=== PATIENT | male | born 1980 | race Caucasian/White ===

== ENCOUNTER 2021-02-01 14:28 | Inpatient (IN) | payer MEDICAID, OTHER ==
[~2021-02-01] VITALS: Ht 180.3 cm; Wt 81.6 kg
[~2021-02-01 14:28] MED LIST: NO HOME MEDICATIONS
[2021-02-01] MEDS ORDERED: SODIUM CHLORIDE 0.9% 1,000 ML IV ONE (15:15)
[2021-02-01] MEDS ORDERED: LORAZEPAM 2MG/ML CPJ IV ONE (15:15)
[2021-02-01 15:30] LABS: MEAN CORPUSCULAR HEMOGLOBIN 18.6 pg (28.0-32.0); MEAN CORPUSCULAR VOLUME 63.8 fL (80.0-94.0); PLATELET 82 x1000/uL (130-400); RED BLOOD CELL COUNT 3.57 mill/uL (4.7-6.1); RED CELL DISTRIBUTION WIDTH 24.2 % (11.6-14.6)
[2021-02-01 15:37] LABS: CHLORIDE 101 mEq/L (98-107)
[2021-02-01 15:41] LABS: ETHANOL BLOOD < 10 mg/dL
[2021-02-01 15:52] LABS: HEMATOCRIT. 22.8 % (42.0-52.0); HEMOGLOBIN. 6.7 g/dL (14.0-18.0)
[2021-02-01 17:02] LABS: PLATELET ESTIMATE DECREASED
[2021-02-01] MEDS ORDERED: PANTOPRAZOLE SODIUM 40 MG/VIAL IV ONE (17:15)
[2021-02-01 17:22] LABS: *AMPHETAMINES SCREEN URINE NEGATIVE (NEGATIVE); *BARBITURATES SCREEN URINE NEGATIVE (NEGATIVE); *BENZODIAZEPINES SCREEN URINE NEGATIVE (NEGATIVE); *COCAINE SCREEN URINE NEGATIVE (NEGATIVE)
[2021-02-01 17:23] LABS: CANNABINOID URINE SCREEN NEGATIVE (NEGATIVE); METHADONE URINE SCREEN NEGATIVE (NEGATIVE); OPIATES URINE SCREEN NEGATIVE (NEGATIVE); PHENCYCLIDINE URINE SCREEN NEGATIVE (NEGATIVE)
[2021-02-01] MEDS ORDERED: ONDANSETRON HCL 4MG/2ML INJ IV PRN (22:00)
[2021-02-01] MEDS ORDERED: ACETAMINOPHEN 325MG TABLET PO PRN (22:00)
[2021-02-01] MEDS ORDERED: DIPHENHYDRAMINE 50MG/ML VIAL IV PRN (22:00)
[2021-02-01] MEDS: SODIUM CHLORIDE 0.9% 1,000 ML IV SCH (22:30)
[2021-02-01] MEDS: ACETAMINOPHEN 325MG TABLET PO PRN (22:44)
[2021-02-01] MEDS ORDERED: MVI, ADULT NO.1 10 ML, FOLIC ACID 1 MG, THIAMINE HCL 100 MG in SODIUM CHLORIDE 0.9% 1,0... IV SCH ×4 (23:00)
[2021-02-01] MEDS ORDERED: FOLIC ACID 1 MG, THIAMINE HCL 100 MG in SODIUM CHLORIDE 0.9% 1,000 ML IV SCH (23:00)
[2021-02-01] MEDS ORDERED: MULTIVITAMINS,THER W-MINERALS TABLET PO SCH (23:00)
[2021-02-02 00:01] VITALS: BP 132/84
[2021-02-02 00:55] LABS: TOTAL IRON BINDING CAPACITY 574 ug/dL (250-450)
[2021-02-02 01:25] LABS: FOLIC ACID (FOLATE) SERUM 17.9 ng/mL (>5.38)
[2021-02-02 07:04] LABS: HEMATOCRIT. 25.1 % (42.0-52.0); HEMOGLOBIN. 7.7 g/dL (14.0-18.0); MEAN CORPUSCULAR HEMOGLOBIN 20.5 pg (28.0-32.0); MEAN CORPUSCULAR VOLUME 67.2 fL (80.0-94.0); MEAN PLATELET VOLUME 8.2 fl (7.4-10.4); RED BLOOD CELL COUNT 3.74 mill/uL (4.7-6.1); RED CELL DISTRIBUTION WIDTH 26.8 % (11.6-14.6)
[2021-02-02 07:32] LABS: CHLORIDE 104 mEq/L (98-107)
[2021-02-02 07:34] LABS: PLATELET 43 x1000/uL (130-400)
[2021-02-02 08:00] VITALS: BP 148/86
[2021-02-02] MEDS ORDERED: PNEUMOCOCCAL 23-VAL P-SAC VAC 0.5 ML IM ONE (08:00)
[2021-02-02] MEDS: LORAZEPAM 2MG/ML CPJ IV PRN ×2 (08:54→15:50)
[2021-02-02] MEDS: ACETAMINOPHEN 325MG TABLET PO PRN (08:55)
[2021-02-02] MEDS ORDERED: PANTOPRAZOLE SODIUM 40 MG/VIAL IV SCH ×2 (09:00→21:00)
[2021-02-02] MEDS ORDERED: INFLUENZA VACCINE 05/PF 0.5 ML VIAL IM ONE (10:00)
[2021-02-02] MEDS ORDERED: CYANOCOBALAMIN 1000MCG/ML VIAL IM SCH (10:00)
[2021-02-02] MEDS ORDERED: MAGNESIUM 4 G PREMIX 100 ML IV SCH (11:00)
[2021-02-02] MEDS: SODIUM CHLORIDE 0.9% 1,000 ML IV SCH ×2 (11:12→17:20)
[2021-02-02 12:00] VITALS: BP 130/81
[2021-02-02 13:40] LABS: NUCLEATED RED BLOOD CELLS 1 /100 WBC
[2021-02-02 13:41] LABS: PLATELET ESTIMATE MARKEDLY DECREASED
[2021-02-02] MEDS ORDERED: ONDANSETRON HCL 4MG/2ML INJ IV PRN (15:45)
[2021-02-02 16:00] VITALS: BP 150/93
[2021-02-02] MEDS: DIATR MEGLU/DIATRIZOATE SOLN 30ML PO SCH ×2 (16:34→17:30)
[2021-02-02] MEDS ORDERED: SUCRALFATE 1 G/10 ML UDC PO SCH (17:10)
[2021-02-02] MEDS ORDERED: CHLORDIAZEPOXIDE 25MG CAPSULE PO SCH (17:37)
[2021-02-02 19:46] LABS: INR 1.1; PROTHROMBIN TIME 11.9 sec (9.6-11.0)
[2021-02-02 19:57] LABS: AMYLASE 76 IU/L (25-115)
[2021-02-02] MEDS ORDERED: IRON SUCROSE COMPLEX 100 MG/5 ML ML IV SCH (20:00)
[2021-02-02] MEDS ORDERED: POTASSIUM PHOS,M-BASIC-D-BASIC 20 MMOL in DEXT 5% WATER 243.3333 ML IV NR (20:00)
== END 2021-02-02 19:10 | disposition left against medical advice (07) | DRG 253 ==
LOC: ER 14:28 → 8WST 17:02 → ENRESERV 21:30 → 8WST 02-02 00:03
PROVIDERS: ADMIT Internal Medicine; ATTEND Internal Medicine
PROC: 30233N1 Transfusion of Nonautologous Red Blood Cells into Peripheral Vein, Percutaneous Approach (ICD-10-PCS; principal; 2021-02-01)
DX: K62.5 Hemorrhage of anus and rectum (principal); D50.9 Iron deficiency anemia, unspecified; D69.6 Thrombocytopenia, unspecified; E83.39 Other disorders of phosphorus metabolism; E83.42 Hypomagnesemia; E83.51 Hypocalcemia; E43 Unspecified severe protein-calorie malnutrition; R07.89 Other chest pain; E87.6 Hypokalemia; F10.239 Alcohol dependence with withdrawal, unspecified; F41.0 Panic disorder [episodic paroxysmal anxiety]; Z83.3 Family history of diabetes mellitus; Z88.0 Allergy status to penicillin; Z79.899 Other long term (current) drug therapy; Z87.81 Personal history of (healed) traumatic fracture; Z68.25 Body mass index [BMI] 25.0-25.9, adult
CPT/HCPCS: 36415; 71045; 80053; 80305; 80320; 82150; 82607; 82746; 83036; 83540; 83550; 83735; 84100; 84484; 85025; 86850; 86900; 86920; 99291; C9113; J1200; J2060; J3411; J3420; J3475; J3490; J7030; J7040; J7060; P9016; Q9963; G0480

== ENCOUNTER 2021-02-04 16:01 | Inpatient (IN) | payer MEDICAID ==
[~2021-02-04] VITALS: Ht 180.3 cm; Wt 84.5 kg
[2021-02-04] MEDS ORDERED: SODIUM CHLORIDE 0.9% 1,000 ML IV ONE (16:30)
[2021-02-04 17:13] LABS: BASOPHILS % 1.1 % (0.0-2.0); EOSINOPHILS % 1.9 % (0.0-5.0); HEMATOCRIT. 27.9 % (42.0-52.0); HEMOGLOBIN. 8.3 g/dL (14.0-18.0); LYMPHOCYTES % 8.5 % (20.0-50.0); MEAN CORPUSCULAR HEMOGLOBIN 20.4 pg (28.0-32.0); MEAN CORPUSCULAR VOLUME 68.2 fL (80.0-94.0); MEAN PLATELET VOLUME 8.6 fl (7.4-10.4); MONOCYTES % 15.5 % (2.0-8.0); PLATELET 68 x1000/uL (130-400); RED BLOOD CELL COUNT 4.08 mill/uL (4.7-6.1); RED CELL DISTRIBUTION WIDTH 26.4 % (11.6-14.6)
[2021-02-04 17:16] LABS: CHLORIDE 105 mEq/L (98-107)
[2021-02-04 17:17] LABS: INR 1.1; PROTHROMBIN TIME 11.6 sec (9.6-11.0)
[2021-02-04 17:27] LABS: PLATELET ESTIMATE DECREASED
[2021-02-04 23:30] VITALS: BP 169/96
[2021-02-04] MEDS ORDERED: ACETAMINOPHEN 325MG TABLET PO PRN ×2 (23:30)
[2021-02-04] MEDS ORDERED: ZOLPIDEM TARTRATE 5MG TABLET PO PRN (23:30)
[2021-02-04] MEDS ORDERED: MAGNESIUM/ALUMINUM HYDROXIDE/SIMETHICONE 30ML UDC PO PRN (23:30)
[2021-02-04] MEDS ORDERED: CLONIDINE 0.1MG TABLET PO PRN (23:30)
[2021-02-04] MEDS ORDERED: ONDANSETRON HCL 4MG/2ML INJ IV PRN (23:30)
[2021-02-04] MEDS ORDERED: DIPHENHYDRAMINE 50MG/ML VIAL IV PRN (23:30)
[2021-02-05] VITALS: BP 169/96
[2021-02-05] MEDS ORDERED: FOLIC ACID 1 MG, THIAMINE HCL 100 MG in SODIUM CHLORIDE 0.9% 1,000 ML IV SCH (01:00)
[2021-02-05] MEDS ORDERED: MULTIVITAMINS,THER W-MINERALS TABLET PO NR (01:00)
[2021-02-05 04:00] VITALS: BP 130/78
[2021-02-05] MEDS: CHLORDIAZEPOXIDE 25MG CAPSULE PO SCH ×3 (05:41→22:39)
[2021-02-05] MEDS: SODIUM CHLORIDE 0.9% INJ 3ML FLUSH IVF SCH ×3 (05:41→21:04)
[2021-02-05 06:41] LABS: HEMATOCRIT 24.4 % (42.0-52.0); HEMOGLOBIN 7.5 g/dL (14.0-18.0); MEAN CORPUSCULAR HEMOGLOBIN 21.6 pg (28.0-32.0); MEAN CORPUSCULAR VOLUME 70.2 fL (80.0-94.0); PLATELET 62 x1000/uL (130-400); RED BLOOD CELL COUNT 3.47 mill/uL (4.7-6.1); RED CELL DISTRIBUTION WIDTH 26.4 % (11.6-14.6)
[2021-02-05] MEDS ORDERED: OMEPRAZOLE 20MG CAPSULE EXTENDED RELEASE PO SCH (07:10)
[2021-02-05 08:00] VITALS: BP 149/93
[2021-02-05] MEDS: FERROUS SULFATE 325MG TABLET PO SCH ×3 (09:12→17:28)
[2021-02-05 12:00] VITALS: BP 148/89
[2021-02-05 14:23] LABS: TOTAL IRON BINDING CAPACITY 384 ug/dL (250-450)
[2021-02-05 14:40] LABS: FERRITIN 11 ng/mL (22-322)
[2021-02-05 14:51] LABS: HEPATITIS B SURFACE ANTIGEN NEGATIVE
[2021-02-05 15:21] LABS: HEPATITIS A AB IGM NEGATIVE (NEGATIVE)
[2021-02-05 16:00] VITALS: BP 151/88
[2021-02-05 18:11] LABS: HEMATOCRIT 25.1 % (42.0-52.0); HEMOGLOBIN 7.5 g/dL (14.0-18.0); MEAN CORPUSCULAR HEMOGLOBIN 20.6 pg (28.0-32.0); MEAN CORPUSCULAR VOLUME 68.8 fL (80.0-94.0); PLATELET 77 x1000/uL (130-400); RED BLOOD CELL COUNT 3.65 mill/uL (4.7-6.1); RED CELL DISTRIBUTION WIDTH 26.7 % (11.6-14.6)
[2021-02-05 18:20] LABS: INR 1.1; PARTIAL THROMBOPLASTIN TIME 25.1 sec (23.4-31.0); PROTHROMBIN TIME 11.7 sec (9.6-11.0)
[2021-02-05 20:00] VITALS: BP 136/67
[2021-02-05] MEDS ORDERED: IRON SUCROSE COMPLEX 100 MG/5 ML ML IV SCH (20:00)
[2021-02-05 20:42] LABS: VITAMIN B12 SERUM 800 pg/mL (211-911)
[2021-02-05 20:49] LABS: FOLIC ACID (FOLATE) SERUM > 20.00 ng/mL (>5.38)
[2021-02-05] MEDS: PANTOPRAZOLE SODIUM 40 MG/VIAL IV SCH (21:04)
[2021-02-06] VITALS: BP 130/74
[2021-02-06 04:00] VITALS: BP 157/94
[2021-02-06] MEDS: SODIUM CHLORIDE 0.9% INJ 3ML FLUSH IVF SCH ×2 (05:47→12:48)
[2021-02-06] MEDS: CHLORDIAZEPOXIDE 25MG CAPSULE PO SCH ×2 (05:47→15:47)
[2021-02-06 06:47] LABS: BASOPHILS % 1.1 % (0.0-2.0); EOSINOPHILS % 4.1 % (0.0-5.0); HEMATOCRIT. 27.7 % (42.0-52.0); HEMOGLOBIN. 8.1 g/dL (14.0-18.0); LYMPHOCYTES % 24.9 % (20.0-50.0); MEAN CORPUSCULAR HEMOGLOBIN 20.4 pg (28.0-32.0); MEAN PLATELET VOLUME 8.4 fl (7.4-10.4); MONOCYTES % 12.5 % (2.0-8.0); NEUTROPHILS % 57.4 % (40.0-76.0); PLATELET 83 x1000/uL (130-400); RED BLOOD CELL COUNT 3.96 mill/uL (4.7-6.1); RED CELL DISTRIBUTION WIDTH 27.1 % (11.6-14.6)
[2021-02-06 07:20] LABS: CHLORIDE 108 mEq/L (98-107)
[2021-02-06] MEDS: FERROUS SULFATE 325MG TABLET PO SCH ×3 (09:44→15:52)
[2021-02-06] MEDS: PANTOPRAZOLE SODIUM 40 MG/VIAL IV SCH (09:44)
[2021-02-06] MEDS ORDERED: KETAMINE HCL 50 MG/ML 10ML ONE (13:17)
[2021-02-06 15:33] VITALS: BP 124/67
[2021-02-06] MEDS ORDERED: POTASSIUM CHLORIDE 20MEQ TABLET SR PO NR (17:00)
[2021-02-10 10:07] LABS: SACCHAROMYCES CEREVISIAE IGG <20.0 Units (0.0-24.9)
[2021-02-10 15:10] LABS: ATYPICAL pANCA <1:20 titer (Neg:<1:20)
[2021-02-11 10:09] LABS: SACCHAROMYCES CEREVISIAE IGM 20.6 Units (0.0-24.9)
== END 2021-02-06 18:14 | disposition home or self-care (01) | DRG 254 ==
LOC: ER 16:01 → 8WST 21:28 → EDBEDREQ 21:55 → ENRESERV 22:18
PROVIDERS: ADMIT Internal Medicine; ATTEND Internal Medicine
PROC: 0DJ08ZZ Inspection of Upper Intestinal Tract, Via Natural or Artificial Opening Endoscopic (ICD-10-PCS; principal; 2021-02-06)
DX: K92.1 Melena (principal); D50.0 Iron deficiency anemia secondary to blood loss (chronic); R07.89 Other chest pain; E43 Unspecified severe protein-calorie malnutrition; J43.9 Emphysema, unspecified; F10.239 Alcohol dependence with withdrawal, unspecified; K70.9 Alcoholic liver disease, unspecified; R16.1 Splenomegaly, not elsewhere classified; F41.0 Panic disorder [episodic paroxysmal anxiety]; D69.6 Thrombocytopenia, unspecified; Z68.26 Body mass index [BMI] 26.0-26.9, adult; Z20.822 Contact with and (suspected) exposure to COVID-19; K70.30 Alcoholic cirrhosis of liver without ascites
CPT/HCPCS: 36415; 71045; 76700; 80053; 82140; 82270; 82607; 82728; 82746; 83540; 83550; 83880; 84484; 85025; 85027; 86256; 86671; 86705; 86709; 86803; 86850; 86900; 87340; 87426; 88305; 88313; 93005; 93306; 99285; C9113; J3411; J3490; J7030

== ENCOUNTER 2021-04-10 20:00 | Inpatient (IN) | payer MEDICAID ==
[~2021-04-10] VITALS: Ht 180.3 cm; Wt 81.6 kg
[2021-04-10] MEDS ORDERED: SODIUM CHLORIDE 0.9% 1,000 ML IV ONE (21:00)
[2021-04-10 22:32] LABS: BASOPHILS % 1.6 % (0.0-2.0); EOSINOPHILS % 0.9 % (0.0-5.0); HEMATOCRIT. 39.6 % (42.0-52.0); HEMOGLOBIN. 13.7 g/dL (14.0-18.0); LYMPHOCYTES % 38.9 % (20.0-50.0); MEAN CORPUSCULAR HEMOGLOBIN 28.6 pg (28.0-32.0); MEAN CORPUSCULAR VOLUME 82.6 fL (80.0-94.0); MEAN PLATELET VOLUME 6.3 fl (7.4-10.4); MONOCYTES % 6.9 % (2.0-8.0); NEUTROPHILS % 51.7 % (40.0-76.0); PLATELET 158 x1000/uL (130-400)
[2021-04-10 22:35] LABS: CLARITY URINE CLEAR (CLEAR); COLOR URINE YELLOW (YELLOW); KETONES URINE NEGATIVE (NEGATIVE); LEUKOCYTE ESTERASE URINE NEGATIVE (NEGATIVE); NITRITE URINE NEGATIVE (NEGATIVE); OCCULT BLOOD URINE NEGATIVE (NEGATIVE); PH URINE 5.5 (4.5-8.0); PROTEIN URINE 1+ (NEGATIVE); SPECIFIC GRAVITY URINE 1.013 (1.005-1.030); UROBILINOGEN URINE 0.2 E.U./dL (0.2-1.0)
[2021-04-10 22:43] LABS: CHLORIDE 109 mEq/L (98-107)
[2021-04-10 23:03] LABS: PLATELET ESTIMATE NORMAL
[2021-04-11 00:21] LABS: ETHANOL BLOOD 471 mg/dL
[2021-04-11] MEDS ORDERED: ONDANSETRON HCL 4MG/2ML INJ IV PRN (02:00)
[2021-04-11] MEDS ORDERED: DIPHENHYDRAMINE 50MG/ML VIAL IV PRN (02:00)
[2021-04-11] MEDS ORDERED: CLONIDINE 0.1MG TABLET PO PRN (02:00)
[2021-04-11] MEDS ORDERED: MAGNESIUM/ALUMINUM HYDROXIDE/SIMETHICONE 30ML UDC PO PRN (02:00)
[2021-04-11] MEDS ORDERED: LORAZEPAM 2MG/ML CPJ IV PRN (02:00)
[2021-04-11] MEDS ORDERED: ACETAMINOPHEN 325MG TABLET PO PRN ×2 (02:00)
[2021-04-11 02:05] VITALS: BP 119/78
[2021-04-11] MEDS: ZOLPIDEM TARTRATE 5MG TABLET PO PRN (03:09)
[2021-04-11 04:00] VITALS: BP 115/77
[2021-04-11] MEDS ORDERED: MVI, ADULT NO.1 10 ML, FOLIC ACID 1 MG, THIAMINE HCL 100 MG in SODIUM CHLORIDE 0.9% 1,0... IV NR (04:00)
[2021-04-11 06:56] LABS: HEMATOCRIT 35.5 % (42.0-52.0); MEAN CORPUSCULAR HEMOGLOBIN 28.4 pg (28.0-32.0); MEAN CORPUSCULAR VOLUME 83.9 fL (80.0-94.0); PLATELET 101 x1000/uL (130-400); RED BLOOD CELL COUNT 4.23 mill/uL (4.7-6.1); RED CELL DISTRIBUTION WIDTH 24.1 % (11.6-14.6)
[2021-04-11] MEDS ORDERED: FERR-71 PO (07:34)
[2021-04-11 08:00] VITALS: BP 141/96
[2021-04-11] MEDS ORDERED: PNEUMOCOCCAL 23-VAL P-SAC VAC 0.5 ML IM ONE (08:00)
[2021-04-11] MEDS: FAMOTIDINE 20MG/2ML VIAL IV SCH ×2 (09:20→20:58)
[2021-04-11 12:00] VITALS: BP 142/88
[2021-04-11 16:00] VITALS: BP 141/88
[2021-04-11] MEDS: SODIUM CHLORIDE 0.9% 1,000 ML IV SCH ×2 (16:56→22:00)
[2021-04-11] MEDS: FERROUS SULFATE 325MG TABLET PO SCH (16:56)
[2021-04-11 20:00] VITALS: BP 139/69
[2021-04-12] VITALS: BP 134/88
[2021-04-12] MEDS: ZOLPIDEM TARTRATE 5MG TABLET PO PRN (01:38)
[2021-04-12 04:00] VITALS: BP 130/79
[2021-04-12 08:00] VITALS: BP 134/74
[2021-04-12] MEDS: SODIUM CHLORIDE 0.9% 1,000 ML IV SCH (08:32)
[2021-04-12] MEDS: FAMOTIDINE 20MG/2ML VIAL IV SCH (08:32)
[2021-04-12] MEDS: FERROUS SULFATE 325MG TABLET PO SCH ×2 (08:32→12:47)
[2021-04-12 12:00] VITALS: BP 152/84
[2021-04-12 14:55] VITALS: BP_SYST 138; BP_SYST 182; BP_DIAS 84; BP_DIAS 86
[2021-04-12 15:03] VITALS: BP 138/86
== END 2021-04-12 15:45 | disposition home or self-care (01) | DRG 48 ==
LOC: ER 20:00 → 6WST 23:40 → EDBEDREQ 23:43 → EDBEDREQTM 23:43 → ENRESERV 04-11 00:11 → 6WST 04-11 03:11
PROVIDERS: ADMIT Internal Medicine; ATTEND Internal Medicine
DX: G90.8 Other disorders of autonomic nervous system (principal); E87.8 Other disorders of electrolyte and fluid balance, not elsewhere classified; R06.00 Dyspnea, unspecified; J44.9 Chronic obstructive pulmonary disease, unspecified; D50.9 Iron deficiency anemia, unspecified; F10.139 Alcohol abuse with withdrawal, unspecified; F41.9 Anxiety disorder, unspecified; Y90.9 Presence of alcohol in blood, level not specified; Z88.0 Allergy status to penicillin; R06.4 Hyperventilation
CPT/HCPCS: 36415; 71045; 80053; 80320; 81003; 82270; 85025; 85027; 86850; 86900; 90732; 93005; 99291; J2060; J3411; J3490; J7030; G0480

== ENCOUNTER 2021-07-19 14:40 | Inpatient (IN) | payer MEDICAID ==
[~2021-07-19] VITALS: Ht 180.3 cm; Wt 82.0 kg
[~2021-07-19 14:40] MED LIST changes: +FERR-71 PO; -NO HOME MEDICATIONS
[2021-07-19] MEDS ORDERED: LORAZEPAM 2MG/ML CPJ IV ONE (16:30)
[2021-07-19 17:56] LABS: INR 1.1; PROTHROMBIN TIME 11.8 sec (9.6-11.0)
[2021-07-19 17:59] LABS: CHLORIDE 103 mEq/L (98-107)
[2021-07-19 18:05] LABS: ETHANOL BLOOD < 10 mg/dL
[2021-07-19 19:35] LABS: BASOPHILS % 0.2 % (0.0-2.0); EOSINOPHILS % 0.1 % (0.0-5.0); HEMATOCRIT. 38.5 % (42.0-52.0); HEMOGLOBIN. 13.4 g/dL (14.0-18.0); LYMPHOCYTES % 18.3 % (20.0-50.0); MEAN CORPUSCULAR HEMOGLOBIN 32.4 pg (28.0-32.0); MEAN CORPUSCULAR VOLUME 92.8 fL (80.0-94.0); MEAN PLATELET VOLUME 7.9 fl (7.4-10.4); MONOCYTES % 12.9 % (2.0-8.0); NEUTROPHILS % 68.5 % (40.0-76.0); RED BLOOD CELL COUNT 4.15 mill/uL (4.7-6.1); RED CELL DISTRIBUTION WIDTH 18.2 % (11.6-14.6)
[2021-07-19 21:39] LABS: CLARITY URINE CLEAR (CLEAR); COLOR URINE ORANGE (YELLOW); KETONES URINE TRACE (NEGATIVE); LEUKOCYTE ESTERASE URINE 1+ (NEGATIVE); NITRITE URINE POSITIVE (NEGATIVE); OCCULT BLOOD URINE 1+ (NEGATIVE); PH URINE 5.5 (4.5-8.0); PROTEIN URINE 2+ (NEGATIVE); SPECIFIC GRAVITY URINE 1.028 (1.005-1.030)
[2021-07-19] MEDS ORDERED: MORPHINE SULFATE 4 MG/ML CPJ (NOT FOR IM USE) IV ONE (21:45)
[2021-07-19 21:54] LABS: *AMPHETAMINES SCREEN URINE NEGATIVE (NEGATIVE); *BARBITURATES SCREEN URINE NEGATIVE (NEGATIVE); *BENZODIAZEPINES SCREEN URINE NEGATIVE (NEGATIVE); *COCAINE SCREEN URINE NEGATIVE (NEGATIVE)
[2021-07-19 21:56] LABS: CANNABINOID URINE SCREEN NEGATIVE (NEGATIVE); METHADONE URINE SCREEN NEGATIVE (NEGATIVE); OPIATES URINE SCREEN NEGATIVE (NEGATIVE); PHENCYCLIDINE URINE SCREEN NEGATIVE (NEGATIVE)
[2021-07-19] MEDS ORDERED: IOHEXOL-300 100 ML BOTTLE ONE (22:45)
[2021-07-19] MEDS ORDERED: CEFTRIAXONE 2 G PREMIX 50 ML IV ONE (22:45)
[2021-07-20] MEDS ORDERED: ONDANSETRON HCL 4MG/2ML INJ IV PRN
[2021-07-20] MEDS ORDERED: NA PHOS,M-B/NA PHOS,DI-BA ENEMA 118ML PR PRN
[2021-07-20] MEDS ORDERED: CLONIDINE 0.1MG TABLET PO PRN
[2021-07-20] MEDS ORDERED: MAGNESIUM/ALUMINUM HYDROXIDE/SIMETHICONE 30ML UDC PO PRN
[2021-07-20] MEDS ORDERED: ACETAMINOPHEN 325MG TABLET PO PRN ×2
[2021-07-20 04:38] LABS: CHLORIDE 101 mEq/L (98-107)
[2021-07-20 04:47] LABS: HDL CHOLESTEROL 94 mg/dL (40-59); LDL CHOLESTEROL 160 mg/dL (5-100)
[2021-07-20 04:55] LABS: BASOPHILS % 0.4 % (0.0-2.0); EOSINOPHILS % 1.2 % (0.0-5.0); HEMATOCRIT. 37.8 % (42.0-52.0); HEMOGLOBIN. 12.7 g/dL (14.0-18.0); LYMPHOCYTES % 19.9 % (20.0-50.0); MEAN CORPUSCULAR HEMOGLOBIN 32.1 pg (28.0-32.0); MEAN PLATELET VOLUME 7.6 fl (7.4-10.4); MONOCYTES % 12.2 % (2.0-8.0); NEUTROPHILS % 66.3 % (40.0-76.0); RED BLOOD CELL COUNT 3.97 mill/uL (4.7-6.1); RED CELL DISTRIBUTION WIDTH 18.2 % (11.6-14.6)
[2021-07-20 05:05] LABS: PLATELET 27 x1000/uL (130-400)
[2021-07-20] MEDS: CHLORDIAZEPOXIDE 5 MG CAPSULE PO SCH ×3 (06:35→21:20)
[2021-07-20] MEDS ORDERED: POTASSIUM CHLORIDE 20MEQ TABLET SR PO NR (08:15)
[2021-07-20] MEDS ORDERED: THIAMINE HCL 100MG TABLET PO SCH (09:00)
[2021-07-20] MEDS ORDERED: FOLIC ACID 1MG TABLET PO SCH (09:00)
[2021-07-21 01:07] VITALS: BP 166/99
[2021-07-21 14:06] LABS: PLATELET 28 x1000/uL (130-400)
[2021-07-21] MEDS ORDERED: CIPR-263 MT (15:51)
== END 2021-07-21 04:12 | disposition left against medical advice (07) | DRG 384 ==
LOC: ER 14:51 → MICUSO 20:09 → 6WST 07-20 20:35 → MICUSO 07-20 23:20 → 6EST 07-21 00:15
PROVIDERS: ADMIT Family Medicine; ATTEND Family Medicine
DX: S30.1XXA Contusion of abdominal wall, initial encounter (principal); D69.6 Thrombocytopenia, unspecified; D64.9 Anemia, unspecified; E78.5 Hyperlipidemia, unspecified; F10.10 Alcohol abuse, uncomplicated; W18.39XA Other fall on same level, initial encounter; E87.6 Hypokalemia; J44.9 Chronic obstructive pulmonary disease, unspecified; Z88.0 Allergy status to penicillin; Z79.899 Other long term (current) drug therapy; Y93.89 Activity, other specified; Y92.89 Other specified places as the place of occurrence of the external cause; Y99.8 Other external cause status
CPT/HCPCS: 36415; 71045; 74177; 80053; 80061; 80305; 80320; 81003; 83605; 84484; 85025; 85049; 86850; 86900; 93005; 99285; J0696; J2060; J2270; Q9967; G0480

== ENCOUNTER 2021-07-21 12:10 | Emergency (ER) | payer MEDICAID ==
[~2021-07-21] VITALS: Ht 172.7 cm; Wt 89.0 kg
[2021-07-21 13:23] VITALS: BP 147/95
[2021-07-21] MEDS ORDERED: CHLORDIAZEPOXIDE 25MG CAPSULE PO ONE (14:30)
[2021-07-21] MEDS ORDERED: ACETAMINOPHEN 325MG TABLET PO ONE (14:30)
[2021-07-21] MEDS ORDERED: CHLORDIAZEPOXIDE 5 MG CAPSULE PO NR (15:15)
[2021-07-21 15:30] LABS: BASOPHILS % 0.5 % (0.0-2.0); EOSINOPHILS % 2.7 % (0.0-5.0); HEMOGLOBIN. 13.2 g/dL (14.0-18.0); LYMPHOCYTES % 18.5 % (20.0-50.0); MEAN CORPUSCULAR HEMOGLOBIN 32.3 pg (28.0-32.0); MEAN CORPUSCULAR VOLUME 95.3 fL (80.0-94.0); MEAN PLATELET VOLUME 8.6 fl (7.4-10.4); NEUTROPHILS % 65.3 % (40.0-76.0); RED BLOOD CELL COUNT 4.09 mill/uL (4.7-6.1); RED CELL DISTRIBUTION WIDTH 17.9 % (11.6-14.6)
[2021-07-21 15:31] LABS: CHLORIDE 101 mEq/L (98-107)
[2021-07-21 15:36] LABS: PLATELET 48 x1000/uL (130-400)
[2021-07-21 15:38] LABS: INR 1.1; PROTHROMBIN TIME 11.8 sec (9.6-11.0)
[2021-07-21 15:40] LABS: ETHANOL BLOOD < 10 mg/dL
[2021-07-21] MEDS ORDERED: CIPR-263 MT (15:51)
== END 2021-07-21 16:12 | disposition left against medical advice (07) ==
LOC: ER 12:10
DX: N39.0 Urinary tract infection, site not specified (principal); F10.239 Alcohol dependence with withdrawal, unspecified; M54.5 Low back pain; D64.9 Anemia, unspecified; D69.6 Thrombocytopenia, unspecified; J44.9 Chronic obstructive pulmonary disease, unspecified; Y90.0 Blood alcohol level of less than 20 mg/100 ml; Z87.891 Personal history of nicotine dependence; Z88.0 Allergy status to penicillin
CPT/HCPCS: 36415; 80053; 80320; 85025; 99283; G0480

== ENCOUNTER 2022-06-16 16:51 | Emergency (ER) | payer MEDICAID ==
[~2022-06-16] VITALS: Ht 180.3 cm; Wt 82.0 kg
[~2022-06-16 16:51] MED LIST changes: +CIPR-263 MT
[2022-06-16 17:11] VITALS: BP 164/110
== END 2022-06-16 19:08 | disposition left against medical advice (07) ==
LOC: ER 16:51
DX: Z53.21 Procedure and treatment not carried out due to patient leaving prior to being seen by health care provider (principal)